=== PATIENT | female | born 1990 | race Caucasian/White ===

== ENCOUNTER 2017-02-22 16:51 | Emergency (ER) | payer MEDICAID ==
[~2017-02-22] VITALS: Ht 182.9 cm; Wt 54.5 kg
[2017-02-22] MEDS ORDERED: SODIUM CHLORIDE FLUSH 10ML SYR IVF ONE (17:30)
[2017-02-22] MEDS ORDERED: ONDANSETRON 2MG/ML, 2ML IVPush ONE (17:30)
[2017-02-22] MEDS ORDERED: SODIUM CHLORIDE 0.9% 1,000ML IVBOLUS ONE (17:30)
[2017-02-22] MEDS ORDERED: ONDANSETRON 2MG/ML, 2ML ONE (17:58)
[2017-02-22] MEDS ORDERED: KETOROLAC 30 MG/1 ML ONE (17:58)
[2017-02-22] MEDS ORDERED: KETOROLAC 30 MG/1 ML IVPush ONE (18:00)
[2017-02-22] MEDS ORDERED: DICYCLOMINE 20 MG TABLET PO ONE (18:00)
[2017-02-22 18:09] LABS: HEMATOCRIT 40.1 % (34.6-47.8); HEMOGLOBIN 13.4 g/dL (11.7-16.4); WHITE BLOOD COUNT 6.6 x10^3/uL (3.4-10)
[2017-02-22 18:14] LABS: BLOOD UREA NITROGEN 12 mg/dL (7-18)
[2017-02-22 18:19] LABS: ASPARTATE AMINO TRANSFERASE 13 U/L (15-37)
[2017-02-22 19:08] VITALS: BP 110/66
== END 2017-02-22 19:14 | disposition home or self-care (01) ==
LOC: ED 18:45
DX: R11.2 Nausea with vomiting, unspecified (principal); R19.7 Diarrhea, unspecified; J45.909 Unspecified asthma, uncomplicated
CPT/HCPCS: 36415; 80053; 81003; 83690; 84703; 85025; 96361; 96374; 96375; 99284; J1885; J2405; J7030

== ENCOUNTER 2017-10-19 23:39 | Emergency (ER) | payer MEDICAID ==
[~2017-10-19] VITALS: Ht 177.8 cm; Wt 55.1 kg
[2017-10-20 00:50] LABS: HCG UR SG 1.024 (1.003-1.030); MICROSCOPIC INDICATED
[2017-10-20] MEDS ORDERED: MORPHINE SULFATE 4 MG/ML, 1ML ONE (00:56)
[2017-10-20] MEDS ORDERED: SODIUM CHLORIDE FLUSH 10ML SYR IVF ONE (01:00)
[2017-10-20] MEDS ORDERED: MORPHINE SULFATE 4 MG/ML, 1ML IVPush PRN (01:00)
[2017-10-20] MEDS ORDERED: SODIUM CHLORIDE 0.9% 1,000ML IVBOLUS ONE (01:00)
[2017-10-20 01:02] LABS: CULTURE INDICATED? YES
[2017-10-20 01:03] LABS: BASOPHILS # (AUTO) 0.06 x10^3/uL (0-0.1); BASOPHILS % (AUTO) 1 % (0-1); EOSINOPHILS # (AUTO) 0.53 x10^3/uL (0-0.4); EOSINOPHILS % (AUTO) 7 % (1-7); LYMPHOCYTES # (AUTO) 1.88 x10^3/uL (1-3.4); LYMPHOCYTES % (AUTO) 26 % (22-44); MD NO; MEAN CORPUSCULAR HEMOGLOBIN 30.5 pg (27.0-34.8); MEAN CORPUSCULAR HGB CONC 33.1 g/dL (32.4-35.8); MEAN CORPUSCULAR VOLUME 92.3 fL (80-100); MEAN PLATELET VOLUME 8.4 fL (7.4-10.4); MONOCYTES % (AUTO) 8 % (2-9); NEUTROPHILS # (AUTO) 4.16 x10^3/uL (1.8-6.8); NEUTROPHILS % (AUTO) 58 % (42-75); PLATELET COUNT 221 x10^3/uL (130-400); RED BLOOD COUNT 4.41 x10^6/uL (3.82-5.3); RED CELL DISTRIBUTION WIDTH 14.7 % (9.6-15.2)
[2017-10-20 01:19] LABS: ALANINE AMINOTRANSFERASE 33 U/L (12-78); ALBUMIN 3.7 g/dL (3.4-5.0); ANION GAP 8 mmol/L (5-15); CALCIUM 8.6 mg/dL (8.5-10.1); CHLORIDE 111 mmol/L (98-107); CREATININE 1.02 mg/dL (0.55-1.02)
[2017-10-20 01:23] LABS: ALKALINE PHOSPHATASE 45 U/L (45-117); BILIRUBIN,TOTAL 0.5 mg/dL (0.2-1.0); TOTAL PROTEIN 7.4 g/dL (6.4-8.2)
[2017-10-20] MEDS ORDERED: OMNIPAQUE 350 MG/ML, 100ML BOTTLE ONE (01:55)
[2017-10-20 03:01] VITALS: BP 101/60
== END 2017-10-20 03:36 | disposition home or self-care (01) ==
LOC: ED 23:59
DX: R10.32 Left lower quadrant pain (principal); R19.7 Diarrhea, unspecified
CPT/HCPCS: 36415; 74177; 80053; 81001; 81025; 83690; 84703; 85025; 87086; 96361; 96374; 99285; J7030; Q9967

== ENCOUNTER 2018-03-22 14:02 | Emergency (ER) | payer MEDICAID ==
[~2018-03-22] VITALS: Ht 177.8 cm; Wt 51.7 kg
[2018-03-22 14:06] VITALS: BP 129/81
== END 2018-03-22 15:07 | disposition home or self-care (01) ==
LOC: ED 15:01
DX: J02.9 Acute pharyngitis, unspecified (principal); J00 Acute nasopharyngitis [common cold]
CPT/HCPCS: 71046; 99284

== ENCOUNTER 2019-04-18 12:28 | Emergency (ER) | payer MEDICAID ==
[~2019-04-18] VITALS: Ht 177.8 cm; Wt 54.6 kg
[2019-04-18 12:30] VITALS: BP 146/84
[2019-04-18] MEDS ORDERED: METHOCARBAMOL 750 MG TABLET PO ONE (13:00)
[2019-04-18] MEDS ORDERED: KETOROLAC 30 MG/1 ML IM ONE (13:00)
[2019-04-18] MEDS ORDERED: METHOCARBAMOL 750 MG TABLET ONE (13:14)
[2019-04-18] MEDS ORDERED: KETOROLAC 30 MG/1 ML ONE (13:15)
== END 2019-04-18 14:13 | disposition home or self-care (01) ==
LOC: ED 14:08
DX: S00.83XA Contusion of other part of head, initial encounter (principal); S10.93XA Contusion of unspecified part of neck, initial encounter; S40.011A Contusion of right shoulder, initial encounter; Y04.8XXA Assault by other bodily force, initial encounter; Y93.89 Activity, other specified; Y92.009 Unspecified place in unspecified non-institutional (private) residence as the place of occurrence of the external cause; Y99.8 Other external cause status
CPT/HCPCS: 70360; 70486; 72072; 96372; 99284; J1885

== ENCOUNTER 2019-06-17 11:59 | Emergency (ER) | payer SELFPAY ==
[~2019-06-17] VITALS: Ht 177.8 cm; Wt 54.5 kg
[2019-06-17 12:05] VITALS: BP 116/80
[2019-06-17] MEDS ORDERED: IBUPROFEN 600 MG TABLET PO ONE (12:30)
[2019-06-17] MEDS ORDERED: IBUPROFEN 600 MG TABLET ONE (12:43)
[2019-06-17 13:04] LABS: RAPID INFLUENZA A POSITIVE (Negative); RAPID INFLUENZA B Negative (Negative)
--- NOTE | 2019-06-17 13:35 | NUR ---
Patient/Caregiver given discharge instructions and they have confirmed that they understand the instructions. Patient ambulatory with steady gait. PT LEFT WITH ALL PERSONAL BELONGINGS.
== END 2019-06-17 13:39 | disposition home or self-care (01) ==
LOC: ED 13:25
DX: J10.1 Influenza due to other identified influenza virus with other respiratory manifestations (principal); J45.909 Unspecified asthma, uncomplicated
CPT/HCPCS: 87400; 99283

== ENCOUNTER 2020-04-03 17:45 | Emergency (ER) | payer MEDICAID ==
[~2020-04-03] VITALS: Ht 180.3 cm; Wt 58.3 kg
[2020-04-03 18:41] LABS: BASOPHILS % (AUTO) 1 % (0-1); EOSINOPHILS % (AUTO) 7 % (1-7); LYMPHOCYTES % (AUTO) 8 % (22-44); MEAN CORPUSCULAR HEMOGLOBIN 32.1 pg (27.0-34.8); MEAN CORPUSCULAR HGB CONC 33.5 g/dL (32.4-35.8); MEAN PLATELET VOLUME 8.3 fL (7.4-10.4); MONOCYTES % (AUTO) 14 % (2-9); NEUTROPHILS % (AUTO) 70 % (42-75); PLATELET COUNT 173 x10^3/uL (130-400); RED BLOOD COUNT 3.81 x10^6/uL (3.82-5.3); RED CELL DISTRIBUTION WIDTH 13.4 % (9.6-15.2)
[2020-04-03 18:52] LABS: ALBUMIN 3.5 g/dL (3.4-5.0); ANION GAP 7 mmol/L (5-15); CALCIUM 7.9 mg/dL (8.5-10.1); CHLORIDE 109 mmol/L (98-107)
[2020-04-03 19:08] LABS: MD SCAN
[2020-04-03 19:48] VITALS: BP 138/79
== END 2020-04-03 19:53 | disposition home or self-care (01) ==
LOC: ED 18:19
DX: J02.9 Acute pharyngitis, unspecified (principal); Z20.828 Contact with and (suspected) exposure to other viral communicable diseases; R05 Cough; R50.9 Fever, unspecified; R09.81 Nasal congestion; M79.10 Myalgia, unspecified site; J45.909 Unspecified asthma, uncomplicated
CPT/HCPCS: 36415; 71045; 80048; 82040; 85025; 87635; 99284

== ENCOUNTER 2020-09-12 23:58 | Emergency (ER) | payer MEDICAID ==
[~2020-09-12] VITALS: Ht 182.9 cm; Wt 57.7 kg
[2020-09-13] MEDS ORDERED: ACETAMINOPHEN 500 MG TABLET PO ONE (00:30)
[2020-09-13] MEDS ORDERED: ACETAMINOPHEN 500 MG TABLET ONE (00:35)
--- NOTE | 2020-09-13 01:17 | NUR ---
REPORT GIVEN TO KERWIN MARTIN.
[2020-09-13 01:57] VITALS: BP 125/84
== END 2020-09-13 01:59 | disposition home or self-care (01) ==
LOC: ED 09-13 01:14
DX: R50.9 Fever, unspecified (principal); Z20.822 Contact with and (suspected) exposure to COVID-19; R05 Cough; R06.02 Shortness of breath; J45.909 Unspecified asthma, uncomplicated; F17.200 Nicotine dependence, unspecified, uncomplicated
CPT/HCPCS: 71045; 99284; U0003